=== PATIENT | male | born 1930 | race Caucasian/White ===

== ENCOUNTER → 2016-07-25 | Outpatient (CLI) | payer MEDICARE, OTHER ==
[~2016-07-25] MED LIST: ASPIRIN PO; ASTELIN137 MCG; CALCIUM 500 + D1 TAB PO; CHROND PO; COUMADIN PO; COZAAR PO; FISH OIL 1,0001 CAP PO; GLUCOSAMINE PO; IMDUR PO; NORVASC PO; PATIENT'S PHARMACY; PHARMACY; TENORETIC 100 T1 TAB PO; TRICOR PO; TUSSIONEX PENN473 ML PO; VYTORIN 10/40 T1 TAB PO
--- NOTE | ~2016-07-25 | US77 ---
[facility] A Service of [facility] & [facility] RADIOLOGY TEXT RESULTS PATIENT: SUSANNA MEDINA LOCATION: [facility] : 30 UNIT #: [id number] AGE: [address]: Abdirizak Suarez MD SEX: M ORDER DR: [id number] [facility] [address] [place], [place] [address] [id number] O MR#: [id number] Acc #: [id number] NAME: SUSANNA MEDINA : 1930 SEX: M STUDY DATE/TIME: 07/25/2016 13:45 UNIT: US ROOM: STUDY DESCRIPTION: US Kidney Bilateral Complete Attending Physician: Abdirizak Suarez M.D. Referring Physician: Abdirizak Suarez M.D. Ordering Physician: Abdirizak Suarez M.D. Primary Care Physician: Luis Vyas M.D. MEDICAL IMAGING REPORT This report is preliminary unless electronic signature is present EXAM Renal ultrasound 07/25/2016 HISTORY Chronic kidney disease stage III. Renal cell carcinoma and left nephrectomy 20 years ago. FINDINGS The right kidney measures 11.7 cm in longitudinal dimensions. There is no evidence of hydronephrosis or nephrolithiasis. No cystic or solid mass lesions were seen on the right kidney. There is normal renal cortical echogenicity. 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 No residual or recurrent mass is seen in the left renal fossa. Calcified granulomas are seen in the spleen. Images of the bladder are normal. IMPRESSION 1. Negative right kidney. 2. Surgical absence of the left kidney. 3. Images of the bladder are normal. Dictated by... Navneet Abdul M.D. THIS IS AN ELECTRONICALLY VERIFIED REPORT Navneet Abdul M.D. at 07/26/2016 7:35 AM CAMILLA/kain TD: 07/25/2016 20:12 JOB #: [id number] MEDICAL IMAGING REPORT COPY
== END | disposition home or self-care (01) ==
LOC: CGUS 12:53
DX: N18.3 Chronic kidney disease, stage 3 (moderate) (principal); Z90.5 Acquired absence of kidney
CPT/HCPCS: 76770

== ENCOUNTER → 2016-07-29 | Outpatient (CLI) | payer MEDICARE, OTHER ==
[2016-07-29 12:02] LABS: HEMOGLOBIN 12.8 gm/dL (13.0-16.0); MEAN CELL VOLUME 98.4 FL (83-96); MEAN CORPUSCULAR HEMOGLOBIN 33.1 PG (28-34); MEAN CORPUSCULAR HGB CONC 33.7 g/dL (30-36); MEAN PLATELET VOLUME 7.9 FL (6.5-11.5); RED BLOOD COUNT 3.86 X10e (3.90-5.60); RED CELL DISTRIBUTION WIDTH 13.4 % (11.0-15.5); WHITE BLOOD COUNT 6.6 X10e3 (4.0-10.5)
[2016-07-29 12:24] LABS: URINE APPEARANCE CLEAR; URINE BILIRUBIN NEG (NEG); URINE BLOOD NEG (NEG); URINE COLOR YELLOW; URINE GLUCOSE NEG (NEG); URINE KETONE NEG (NEG); URINE LEUKOCYTE ESTERASE NEG (NEG); URINE NITRATE NEG (NEG); URINE PROTEIN NEG (NEG); URINE SPECIFIC GRAVITY 1.008 (1.003-1.035); URINE UROBILINOGEN 0.2 MG/DL (NEG)
[2016-07-29 12:25] LABS: URINE SOURCE CLEAN CATCH
[2016-07-29 12:44] LABS: IRON SERUM 67 ug/dL (45-182); TOTAL IRON BINDING CAPACITY 343 ug/dL (252-460); TRANSFERRIN 245 mg/dL (180-329); TRANSFERRIN SATURATION 20 % (20-50)
[2016-07-29 13:11] LABS: CREATININE,RANDOM URINE 32 mg/dL; TOTAL PROTEIN,RANDOM URINE <10 mg/dl (<10)
[2016-07-29 13:12] LABS: BUN/CREATININE RATIO 23.12; CALCIUM SERUM 8.9 mg/dL (8.4-10.2); CREATININE SERUM 1.6 mg/dL (0.6-1.4); GLOM FILT RATE Estimated 43.8 mL/min (>60); POTASSIUM 4.2 mmol/L (3.5-5.1)
[2016-08-01 22:26] LABS: SPE A1GLOB (PNL) 0.4 g/dL (0.2-0.3); SPE A2GLOB (PNL) 0.8 g/dL (0.5-0.9); SPE ALB (PNL) 3.5 g/dL (3.8-4.8); SPE BETA 1 GLOBULIN 0.5 g/dL (0.4-0.6); SPE BETA 2 GLOBULIN 0.4 g/dL (0.2-0.5); SPE GAMMA (PNL) 1.1 g/dL (0.8-1.7); SPETP (PNL) 6.5 g/dL (6.1-8.1); UPE RANDOM CREATININE 33.2 mg/dL (20-370); UPE RANDOM TOTAL PROTEIN (PNL) <4 mg/dL (5-25)
== END | disposition home or self-care (01) ==
LOC: CLAB 11:03
PROVIDERS: Internal Medicine Nephrology
DX: N18.3 Chronic kidney disease, stage 3 (moderate) (principal)
CPT/HCPCS: 36415; 80048; 81003; 82306; 82570; 82728; 83540; 83550; 83883; 84156; 84165; 84166; 85027; 86334; 86335

== ENCOUNTER → 2016-10-15 | Outpatient (CLI) | payer MEDICARE, OTHER ==
[2016-10-15 13:50] LABS: BASOPHIL% 0.5 % (0-2.5); EOSINOPHIL# 0.1 X10e3 (0-0.7); EOSINOPHIL% 1.7 % (0.0-7.0); HEMOGLOBIN 12.3 gm/dL (13.0-16.0); LYMPHOCYTE# 1.1 X10e3 (1.0-3.5); LYMPHOCYTE% 13.5 % (17.0-45.0); MEAN CELL VOLUME 99.8 FL (83-96); MEAN CORPUSCULAR HEMOGLOBIN 33.2 PG (28-34); MEAN CORPUSCULAR HGB CONC 33.3 g/dL (30-36); MEAN PLATELET VOLUME 8.1 FL (6.5-11.5); MONOCYTE# 0.7 X10e3 (0-1.0); MONOCYTE% 8.3 % (3.0-12.0); PLATELET COUNT 175 X10e3 (140-420); RED BLOOD COUNT 3.71 X10e (3.90-5.60); RED CELL DISTRIBUTION WIDTH 13.1 % (11.0-15.5); WHITE BLOOD COUNT 7.9 X10e3 (4.0-10.5)
[2016-10-15 13:51] LABS: URINE APPEARANCE CLEAR; URINE BILIRUBIN NEG (NEG); URINE BLOOD NEG (NEG); URINE COLOR YELLOW; URINE GLUCOSE NEG (NEG); URINE KETONE NEG (NEG); URINE LEUKOCYTE ESTERASE NEG (NEG); URINE NITRATE NEG (NEG); URINE PROTEIN NEG (NEG); URINE SPECIFIC GRAVITY 1.008 (1.003-1.035); URINE UROBILINOGEN 0.2 MG/DL (NEG)
[2016-10-15 13:52] LABS: DIFF IND NO
[2016-10-15 14:04] LABS: CREATININE,RANDOM URINE 34 mg/dL; TOTAL PROTEIN,RANDOM URINE <10 mg/dl (<10)
[2016-10-15 14:28] LABS: BUN/CREATININE RATIO 27.33; CALCIUM SERUM 9.6 mg/dL (8.4-10.2); CREATININE SERUM 1.5 mg/dL (0.6-1.4); GLOM FILT RATE Estimated 41.6 mL/min (>60); PHOSPHOROUS 3.8 mg/dL (2.5-4.6); POTASSIUM 3.8 mmol/L (3.5-5.1)
[2016-10-18 16:07] LABS: CALCIUM (PTHINTACT) 9.5 mg/dL (8.6-10.3)
== END | disposition home or self-care (01) ==
LOC: CLAB 13:00
PROVIDERS: Internal Medicine Nephrology
DX: N18.3 Chronic kidney disease, stage 3 (moderate) (principal); D63.1 Anemia in chronic kidney disease; N25.81 Secondary hyperparathyroidism of renal origin; E55.9 Vitamin D deficiency, unspecified
CPT/HCPCS: 36415; 80048; 81003; 82306; 82310; 82570; 82728; 83540; 83550; 83970; 84100; 84156; 85025

== ENCOUNTER → 2017-02-07 | Outpatient (CLI) | payer MEDICARE, OTHER ==
[2017-02-07 14:43] LABS: HEMATOCRIT 37.1 % (38.0-50.0); HEMOGLOBIN 12.5 gm/dL (13.0-16.0); MEAN CELL VOLUME 98.5 FL (83-96); MEAN CORPUSCULAR HEMOGLOBIN 33.2 PG (28-34); MEAN CORPUSCULAR HGB CONC 33.7 g/dL (30-36); MEAN PLATELET VOLUME 7.6 FL (6.5-11.5); RED BLOOD COUNT 3.77 X10e (3.90-5.60); RED CELL DISTRIBUTION WIDTH 12.9 % (11.0-15.5); WHITE BLOOD COUNT 7.5 X10e3 (4.0-10.5)
[2017-02-07 14:58] LABS: CREATININE,RANDOM URINE 42 mg/dL; TOTAL PROTEIN,RANDOM URINE <10 mg/dl (<10)
[2017-02-07 15:40] LABS: BUN/CREATININE RATIO 21.42; CALCIUM SERUM 9.1 mg/dL (8.4-10.2); CREATININE SERUM 1.4 mg/dL (0.6-1.4); GLOM FILT RATE Estimated 45.2 mL/min (>60); PHOSPHOROUS 3.1 mg/dL (2.5-4.6); POTASSIUM 4.6 mmol/L (3.5-5.1)
[2017-02-07 15:41] LABS: URINE APPEARANCE CLEAR; URINE BILIRUBIN NEG (NEG); URINE BLOOD NEG (NEG); URINE COLOR YELLOW; URINE GLUCOSE NEG (NEG); URINE KETONE NEG (NEG); URINE LEUKOCYTE ESTERASE NEG (NEG); URINE NITRATE NEG (NEG); URINE PH 5.5 (5-8); URINE PROTEIN NEG (NEG); URINE UROBILINOGEN 0.2 MG/DL (NEG)
[2017-02-12 07:10] LABS: CALCIUM (PTHINTACT) 9.1 mg/dL (8.6-10.3)
== END | disposition home or self-care (01) ==
LOC: CLAB 14:00
PROVIDERS: Internal Medicine Nephrology
DX: N18.3 Chronic kidney disease, stage 3 (moderate) (principal); D63.1 Anemia in chronic kidney disease; N25.81 Secondary hyperparathyroidism of renal origin; E55.9 Vitamin D deficiency, unspecified
CPT/HCPCS: 36415; 80048; 81003; 82306; 82310; 82570; 82728; 83540; 83550; 83970; 84100; 84156; 85027